=== PATIENT | female | born 1935 | race Caucasian/White ===

== ENCOUNTER 2021-01-13 09:55 | Inpatient (IN) | payer MEDICARE, OTHER, SELFPAY ==
[2021-01-13] VITALS (15 sets, daily range): BP systolic 102–193; BP diastolic 55–94; PULSE 63–85; RESP 14–23; TEMP 36.3–37.3; O2SAT 95–100; BMI 18.5; BMI 17.4
--- NOTE | 2021-01-13 | PATH_ITS ---
[facility] Accession Number: [id number] . 01 Material submitted: . appendix - APPENDIX . 02 Diagnosis: Appendix, Appendectomy: Acute appendicitis with serositis. Negative for dysplasia and malignancy. V 01/17/2021 1346 Local . 02 Electronically signed: . Elana Benson MD, Pathologist NPI- [id number] . 01 Gross description: . The specimen is received in formalin, labeled appendix and consists of a 5.6 cm in length by 1.4 cm in diameter vermiform appendix with minimal attached valencia-yellow lobulated mesoappendix. The serosa is valencia-pink to pink-purple and smooth with focal areas of hemorrhage and fibrinous adhesions. Sectioning reveals a valencia-pink mucosa and a lumen measuring 0.5 cm in diameter. Director Of Business Development sections are submitted to include the margin (blue), central cross-sections and serially sectioned tip in cassettes A1-A4. (EA:[id number]) /MRV 01/14/2021 1112 Local . 02 Pathologist provided ICD-10: K35.80 . 02 CPT . 897172 Performed at: 01 [facility] [address], [place], [place] [id number] MD Candido Arambula MD Phone: [phone] Performed at: 02 [facility] [address] [place], [place] [id number] MD Elana Benson MD Phone: [phone]
--- NOTE | 2021-01-13 10:06 | ED_ITS ---
HPI - Abdominal Pain General Chief Complaint: Abdominal Pain Stated Complaint: abdominal pain, suspects kidney stone Time Seen by Provider: 01/13/21 09:57 Source: patient and family Mode of arrival: Ambulatory Limitations: no limitations History of Present Illness HPI narrative: 85-year-old nonsmoker with history of hypertension presents with her in the chief complaint increasing lower abdominal pain over the past 24 hours or so. She has been nauseated but denies any vomiting. She has low- grade fever. She denies any change in appetite, bowel habits or urinary complaints such as dysuria, frequency or urgency. She last ate at about 8:00 a.m.. She takes no blood thinners. She states her pain is worse with movement and improves with rest. She denies any radiation of the pain and states she has never had anything like this before. It is moderate in intensity and relatively constant and slightly worsening over the course of the day MD complaint: abdominal pain Onset (ago): hour(s) Pain Consistency: constant Location: suprapubic Quality: cramping and aching Relieving factors: rest Exacerbating factors: movement Related Data Home Medications Medication Instructions Recorded Confirmed atorvastatin 10 mg PO DAILY 01/13/21 01/13/21 metformin 250 mg PO TID 01/13/21 01/13/21 valsartan 40 mg PO DAILY 01/13/21 01/13/21 Allergies Allergy/AdvReac Type Severity Reaction Status Date / Time Penicillins Allergy Intermediate Hives Verified 01/13/21 10:40 adhesive tape AdvReac Rash Verified 01/13/21 14:21 Review of Systems Constitutional Constitutional: Reports chills, Denies fatigue, Denies fever(s), Denies frequent falls, Denies lethargy and Denies weakness Eyes Eyes: Denies change in vision, Denies eye discharge, Denies irritation and Denies loss of vision ENT Ears, Nose, Mouth, and Throat: Denies change in voice, Denies dizziness, Denies neck pain, Denies sore throat and Denies throat swelling Cardiovascular Cardiovascular: Denies chest pain, Denies irregular heart rhythm, Denies lightheadedness, Denies palpitations, Denies dyspnea, Denies dyspnea on exertion and Denies orthopnea Respiratory Respiratory: Denies cough, Denies dyspnea, Denies dyspnea on exertion and Denies wheezing Gastrointestinal Gastrointestinal: Reports abdominal pain, Denies change in bowel habits, Denies diarrhea, Reports nausea and Denies vomiting Musculoskeletal Musculoskeletal: Denies neck pain and Denies numbness Integumentary/Breasts Skin/Breast: Denies pruritus, Denies erythema, Denies rash and Denies wounds Neurologic Neurologic: Denies behavioral changes, Denies confusion, Denies dizziness, Denies frequent falls, Denies loss of vision, Denies numbness and Denies weakness Psychiatric Psychiatric: Denies anxiety, Denies behavioral changes, Denies confusion, Denies depression, Denies homicidal ideation and Denies suicidal ideation Endocrine Endocrine: Denies fatigue, Denies flushing and Denies palpitations Hematologic/Lymphatic Hematologic/Lymphatic: Denies easy bruising Allergic/Immunologic Allergic/Immunologic: Denies urticaria, Denies throat swelling and Denies wheezing Patient History Surgical History (Updated 01/13/21 @ 14:20 by Ania Howe RN) History of mastectomy (~09/30/10) Social History household members: spouse Smoking Status: Never smoker alcohol intake: current Smoking Status: Never smoker alcohol intake frequency: 0-2 drinks per day Substance Use Type: does not use Exam Narrative Exam Narrative: GENERAL: [85] year old patient appears stated age. Well- nourished, well-developed patient, in mild distress. HEAD: Atraumatic. Normocephalic. EYES: Pupils equal round and reactive. Extraocular motions intact. No scleral icterus. No injection or drainage. ENT: Nose without bleeding, purulent drainage. Throat without erythema, tons illar hypertrophy or exudate. Airway patent. NECK: Trachea midline. Non tender CARDIOVASCULAR: Regular rate and rhythm without murmurs, gallops, or rubs. RESPIRATORY: Clear to auscultation. Breath sounds equal bilaterally. No wheezes, rales, or rhonchi. GASTROINTESTINAL: Abdomen soft, tender in the lower abdomen with localized peritonitis, nondistended. EXTREMITIES: No edema or joint tenderness. BACK: Nontender without deformity or crepitance. No flank tenderness. NEURO: AOx3. SKIN: No rash or erythema of visible areas Initial Vital Signs Initial Vital Signs: Vital Signs Temperature 99.1 F 01/13/21 09:55 Pulse Rate 85 01/13/21 09:55 Respiratory Rate 14 01/13/21 09:55 Blood Pressure 172/94 H 01/13/21 09:55 Pulse Oximetry 99 01/13/21 09:55 Course Orders Ordered: ED Orders 01/13/21 10:29 CT abdomen pelvis w con Stat 01/13/21 10:45 Complete Blood Count AUTO DIFF Stat Comprehensive Metabolic Panel Stat 01/13/21 12:30 COVID19 - ADMIT (SAFETY RISK LEAD swab/PCR) Stat Acetaminophen (Acetaminophen 325 Mg Tablet) 325 mg PO PACUNOW PRN PRN Reason: Pain, Mild (1-3) Acetaminophen (Acetaminophen 325 Mg Tablet) 650 mg PO Q6HR PRN PRN Reason: Pain, Mild (1-3) Atorvastatin Calcium (Atorvastatin 20 Mg Tablet) 10 mg PO DAILY RAUL Docusate Sodium (Docusate 100 Mg Capsule) 100 mg PO BID PRN PRN Reason: Constipation Fentanyl (Fentanyl 100 Mcg/2 Ml Inj) 0 mcg IV Q5M PRN PRN Reason: Pain, Moderate (4-6) Heparin Sodium (Porcine) (Heparin 5,000 Unit/Ml Vial) 5,000 unit SUBCUT BID [facility] Sodium Chloride (Normal Saline 0.9%) 1,000 mls @ 125 mls/hr IV CONT [facility] Last Infusion: 01/13/21 13:29 Dose: 0 mls/hr Documented by: Admin: 01/13/21 10:52 Dose: 125 mls/hr Documented by: BTONER Lactated Ringer's (Lactated Ringers) 1,000 mls @ 42 mls/hr IV CONT RAUL Last Infusion: 01/13/21 17:57 Dose: 0 mls/hr Documented by: Admin: 01/13/21 14:54 Dose: 42 mls/hr Documented by: NARAORD Levofloxacin (Levaquin) 750 mg in 150 mls @ 100 mls/hr IV Q48H [facility] Metformin HCl (Metformin Hcl 500 Mg Tablet) 250 mg PO TID [facility] Morphine Sulfate (Morphine 2 Mg/Ml Inj) 2 mg IV Q4HR PRN PRN Reason: Pain, Moderate (4-6) Naloxone HCl (Naloxone 0.4 Mg/Ml Vial) 0.2 mg IV Q2MIN PRN PRN Reason: Opiate Reversal Ondansetron HCl (Ondansetron 4 Mg/2 Ml Inj) 4 mg IV NOW PRN PRN Reason: Nausea And Vomiting Ondansetron HCl (Ondansetron 4 Mg/2 Ml Inj) 4 mg IV Q4HR PRN PRN Reason: Nausea And Vomiting Oxycodone HCl (Oxycodone Ir 5 Mg Tablet) 5 mg PO PACUNOW PRN PRN Reason: Mild or moderate pain Oxycodone HCl (Oxycodone Ir 5 Mg Tablet) 5 mg PO Q6HR PRN PRN Reason: Pain, Moderate (4-6) Valsartan (Valsartan 80 Mg Tablet) 40 mg PO DAILY RAUL Discontinued Medications Levofloxacin (Levaquin) 500 mg in 100 mls @ 100 mls/hr IV NOW ONE Stop: 01/13/21 13:05 Last Infusion: 01/13/21 13:37 Dose: 0 mls/hr Documented by: Admin: 01/13/21 12:17 Dose: 100 mls/hr Documented by: ANGEL Metronidazole (Flagyl) 500 mg in 100 mls @ 100 mls/hr IV NOW ONE Stop: 01/13/21 13:05 Last Admin: 01/13/21 13:37 Dose: Not Given Documented by: ANGEL Consultations Consultation #1: Upon receipt of CT scan and General surgery called, she will s ee the patient the bedside and taken the OR later today Vital Signs Vital signs: Vital Signs - 8 hr 01/13/21 12:05 Pulse Rate 70 Respiratory Rate 14 Blood Pressure 171/90 H Pulse Oximetry 100 MDM - Abdominal Pain Lab Data Result diagrams: 01/13/21 10:45 01/13/21 10:45 Labs: Lab Results 01/13/21 01/13/21 Range/Units 10:45 10:45 WBC 10.0 (4.5-11.0) X10^3/uL RBC 4.01 (4.0-5.2) X10^6/uL Hgb 13.2 (12.0-16.0) g/dL Hct 39.1 (36-46) % MCV 97.4 (80-100) fL MCH 32.8 (26-34) PG MCHC 33.7 (30-36) % RDW 13.7 (11.6-14.8) % Plt Count 211 (150-400) X10^3/uL Neut % (Auto) 73.3 (50-75) % Lymph % (Auto) 15.3 L (25-40) % [place] % (Auto) 10.3 (3-14) % Eos % (Auto) 0.4 L (2-4) % Baso % (Auto) 0.7 (0-2) % Neut # (Auto) 7300 H (3049-3905) /uL Lymph # (Auto) 1500 (0076-4476) /uL [place] # (Auto) 1000 H (0-900) /uL Eos # (Auto) 0 (0-450) /uL Baso # (Auto) 100 (0-100) /uL Sodium 132 L (137-145) mmol/L Potassium 4.1 (3.4-5.1) mmol/L Chloride 96 L (98-107) mmol/L Carbon Dioxide 27 (22-32) mmol/L BUN 14 (7-17) mg/dL Creatinine 0.86 (0.52-1.04) mg/dL Estimated GFR > 60.0 (>60) mL/min BUN/Creatinine Ratio 16.3 (6-22) Glucose 127 H (80-110) mg/dL Calcium 9.8 (8.4-10.2) mg/dL Total Bilirubin 1.8 H (0.2-1.3) mg/dL AST 26 (14-36) IU/L ALT 15 (<35) IU/L Alkaline Phosphatase 90 (38-126) U/L Total Protein 8.0 (6.3-8.2) g/dL Albumin 4.7 (3.5-5.0) g/dL Globulin 3.3 (1.7-4.1) g/dL Albumin/Globulin Ratio 1.4 (1.0-2.8) Point of care testing: Point of Care Testing Glucose POC 218 Urine Dip Bedside Urine Glucose Negative Bedside Urine Bilirubin - Negative Bedside Urine Ketone - Negative Urine Specific [place] 1.015 Bedside Urine Occult Blood - Negative Bedside Urine pH 7.0 Bedside Urine Protein - Negative Bedside Urine Urobilinogen - Negative Bedside Urine Nitrite - Negative Bedside Urine Leukocytes - Negative Esterase Imaging Data CT scan - abdomen/pelvis: Radiologist's Impression: Chart Viewer Diagnostics DATE TYPE STATUS REF RANGE/AUTHOR Hx Today 10:29 Paddy Mckeon Joan S 85, F0 1935 ADM [place], Main ED 152.4cm 40.5kg BMI: 17.4kg/m? Search Chart No Data to Display Hives Rash ONSET Today 18:44 Nusrat Faulkner 85 F [address] [address]PT Scan ReportSigned Patient: Nusrat FaulknerMR#: [id number]: 1935cct:[id number]/Sex: 85 / FDate of Service: 01/13/21Loc: EDAccession Number: [id number] Procedure: CT abdomen pelvis w con Ordering Provider: Edgard Vyas D.O. PROCEDURE: CT ABDOMEN PELVIS W CON INDICATIONS: severe pelvic / abdomen pain TECHNIQUE: After the administration of oral and intravenous contrast, 5 mm thick sections acquired from the diaphragms to the symphysis. 5 mm thick coronal and sagittal reformats were performed. For radiation dose reduction, the following was used: automated exposure control, adjustment of mA and/or kV according to patient size. COMPARISON: None. FINDINGS: Image quality: Excellent. ABDOMEN: Lung bases: Lung bases are clear. Heart size is normal. Solid organs: Liver is normal in size and enhancement. Gallbladder is grossly unremarkable. Biliary system is non-dilated. Pancreas enhances normally. Spleen is normal in size and enhancement. No adrenal nodules. Kidneys are normal in size and enhancement, without hydronephrosis. Peritoneum and bowel: Evaluation is limited secondary to lack of oral contrast. Stomach is decompressed. Proximal small bowel is decompressed. There are multiple mildly distended fluid-filled loops of small bowel throughout the pelvis and left hemiabdomen. These bowel loops demonstrate mild wall thickening. There is an abnormal appearing tubular structure within the right hemipelvis, which may represent a thickened appendix measuring roughly 10 mm diameter. At the posterior aspect of this structure, there is a ill-defined hypodense fluid collection measuring roughly 30 mm with an associated calcification measuring 10 mm. This could represent sequelae of ruptured appendicitis with appendicoliths. The colon is nondistended. There is severe thickening of the sigmoid colon. Nodes and vessels: No retroperitoneal or mesenteric adenopathy. Aorta and inferior vena cava are normal in caliber. Miscellaneous: No ventral hernias. PELVIS: Genitourinary: Bladder wall thickness is normal. Miscellaneous: No inguinal hernias or adenopathy. Bones: No suspicious bony lesions. Healed left inferior pubic ramus fracture. No vertebral body compression fractures. IMPRESSION: 1. Findings suggestive of ruptured appendicitis with associated secondary small and large bowel thickening as described above. There is an associated fluid collection at the appendiceal tip containing a presumed appendicoliths. Dictated by: Paddy Mckeon M.D. on 01/13/2021 at 11:53 Approved by: Paddy Mckeon M.D. on 01/13/2021 at 12:00 Discharge Plan Departure Patient Disposition: Admitted As Inpatient Clinical Impression: Acute appendicitis with perforation and generalized peritonitis Qualifiers: Appendicitis gangrene presence: without gangrene Appendicitis abscess presence: without abscess Qualified Code(s): K35.20 - Acute appendicitis with generalized peritonitis, without abscess Admit Date/Time: 01/13/21 12:08 Admit Provider: Myra Skelton
--- NOTE | 2021-01-13 10:29 | DI.CT.S_ITS ---
PROCEDURE: CT ABDOMEN PELVIS W CON INDICATIONS: severe pelvic / abdomen pain TECHNIQUE: After the administration of oral and intravenous contrast, 5 mm thick sections acquired from the diaphragms to the symphysis. 5 mm thick coronal and sagittal reformats were performed. For radiation dose reduction, the following was used: automated exposure control, adjustment of mA and/or kV according to patient size. COMPARISON: None. FINDINGS: Image quality: Excellent. ABDOMEN: Lung bases: Lung bases are clear. Heart size is normal. Solid organs: Liver is normal in size and enhancement. Gallbladder is grossly unremarkable. Biliary system is non-dilated. Pancreas enhances normally. Spleen is normal in size and enhancement. No adrenal nodules. Kidneys are normal in size and enhancement, without hydronephrosis. Peritoneum and bowel: Evaluation is limited secondary to lack of oral contrast. Stomach is decompressed. Proximal small bowel is decompressed. There are multiple mildly distended fluid-filled loops of small bowel throughout the pelvis and left hemiabdomen. These bowel loops demonstrate mild wall thickening. There is an abnormal appearing tubular structure within the right hemipelvis, which may represent a thickened appendix measuring roughly 10 mm diameter. At the posterior aspect of this structure, there is a ill-defined hypodense fluid collection measuring roughly 30 mm with an associated calcification measuring 10 mm. This could represent sequelae of ruptured appendicitis with appendicoliths. The colon is nondistended. There is severe thickening of the sigmoid colon. Nodes and vessels: No retroperitoneal or mesenteric adenopathy. Aorta and inferior vena cava are normal in caliber. Miscellaneous: No ventral hernias. PELVIS: Genitourinary: Bladder wall thickness is normal. Miscellaneous: No inguinal hernias or adenopathy. Bones: No suspicious bony lesions. Healed left inferior pubic ramus fracture. No vertebral body compression fractures. IMPRESSION: 1. Findings suggestive of ruptured appendicitis with associated secondary small and large bowel thickening as described above. There is an associated fluid collection at the appendiceal tip containing a presumed appendicoliths. Dictated by: Paddy Mckeon M.D. on 01/13/2021 at 11:53 Approved by: Paddy Mckeon M.D. on 01/13/2021 at 12:00
[2021-01-13 10:50] LABS: Add Manual Diff / Slide Review NO; Basophils Absolute Auto 100 /uL (0-100); Basophils Percent Auto 0.7 % (0-2); Eosinophils Absolute Auto 0 /uL (0-450); Eosinophils Percent Auto 0.4 % (2-4); Hematocrit 39.1 % (36-46); Hemoglobin 13.2 g/dL (12.0-16.0); Lymphocytes Absolute Auto 1500 /uL (1100-4500); Lymphocytes Percent Auto 15.3 % (25-40); Mean Corpuscular HGB Conc 33.7 % (30-36); Mean Corpuscular Hemoglobin 32.8 PG (26-34); Mean Corpuscular Volume 97.4 fL (80-100); Monocytes Absolute Auto 1000 /uL (0-900); Monocytes Percent Auto 10.3 % (3-14); Neutrophils Absolute Auto 7300 /uL (1500-7000); Neutrophils Percent Auto 73.3 % (50-75); Platelet Count 211 X10^3/uL (150-400); Red Blood Cell Count 4.01 X10^6/uL (4.0-5.2); Red Cell Distribution Width 13.7 % (11.6-14.8)
[2021-01-13] MEDS: SODIUM CHLORIDE 0.9% 1,000 ML 125 ML IV (10:52)
[2021-01-13 11:01] LABS: Alanine Aminotransferase 15 IU/L (<35); Albumin 4.7 g/dL (3.5-5.0); Albumin Globulin Ratio 1.4 (1.0-2.8); Alkaline Phosphatase 90 U/L (38-126); Aspartate Aminotransferase 26 IU/L (14-36); BUN Creatinine Ratio 16.3 (6-22); Bilirubin Total 1.8 mg/dL (0.2-1.3); Blood Urea Nitrogen 14 mg/dL (7-17); Calcium 9.8 mg/dL (8.4-10.2); Carbon Dioxide 27 mmol/L (22-32); Chloride 96 mmol/L (98-107); Estimated Glomerular Filt Rate > 60.0 mL/min (>60); Globulin 3.3 g/dL (1.7-4.1); Glucose 127 mg/dL (80-110); HEMOLYSIS < 15 (0-50); Potassium 4.1 mmol/L (3.4-5.1); Sodium 132 mmol/L (137-145)
[2021-01-13] MEDS: levoFLOXacin 500 MG/100 ML PIGGYBACK 100 MG IV (12:17)
--- NOTE | 2021-01-13 13:09 | PM.HP.1 ---
History of Present Illness History of Present Illness Date Patient Seen: 01/13/21 Time Patient Seen: 13:09 Chief complaint: abdominal pain, suspects kidney stone Narrative: This is a n 85 yo woman who presented to the ER today with suprapubic abdominal pain which she reports began yesterday. She had a CT scan which shows a probable perforated appendicitis with an appendicolith. She denies nausea/vomiting. She reports diarrhea. She reports she has never had abdominal surgery. She had a colonoscopy 8 years ago, which she reports was normal. She had polyps on a colonoscopy about 20 years ago. She had a Cologuard test 2 years ago, which she reports was normal. She has a family history of colon cancer in her mother. She denies any melena, hematochezia, unexplained abdominal pain, unexplained weight loss over the last few months or years. ROS: Thirteen system review is otherwise negative other than as mentioned below and in HPI. Past medical history: Type 2 diabetes Hyperlipidemia Hypertension History of left breast cancer treated with surgery only Past surgical history: Left mastectomy and reconstruction Diskectomy Social history Drinks alcohol Patient is visiting in [facility]. She lives in [facility]. She is appear to take her move to [place] with her . Allergies: Rash from penicillin many years ago Family history: Mother with colon cancer Medications Metformin 250 mg t.i.d. Valsartan 40 mg daily in the afternoon Atorvastatin 10 mg daily in the morning PE: GENERAL: Well groomed and cooperative. Appears stated age. Answers questions promptly and appropriately. Vital signs noted. HENT: Normocephalic, atraumatic. Hearing intact. EYES: Conjunctiva pink, sclera white, no periorbital swelling. CARDIOVASCULAR: Regular rate. No pedal edema. RESPIRATORY: Non-tachypneic, breathing comfortably on room air. GASTROINTESTINAL: Abdomen soft and non-distended; tender to palpation in the suprapubic region GENITALURINARY: No flank tenderness. MUSCULOSKELETAL: Equal tone and mass bilaterally. SKIN: Warm, dry, soft, appropriate color for ethnicity. No other lesions, rashes, or wounds. NEURO: Alert and Oriented X 3. No gross sensory deficits, or cognitive issues. PSYCH: Appropriate affect and mood. Patient History Family & Social History Safety & Behavioral: Feels Safe in Current Yes Environment Been Physically Hurt or No Threatened By a Person Tobacco & Substance use: Smoking Status Never smoker alcohol intake frequency 0-2 drinks per day Substance Use Type does not use Meds Home Medications and Allergies Home Medications Medication Instructions Recorded Confirmed Type valsartan 40 mg PO DAILY 01/13/21 01/13/21 History Allergies Allergy/AdvReac Type Severity Reaction Status Date / Time Penicillins Allergy Intermediate Hives Verified 01/13/21 10:40 Exam Vital Signs (past 8 hours): - 01/13/21 09:55 01/13/21 12:05 01/13/21 12:35 Temperature 99.1 F Pulse Rate 85 70 72 Respiratory Rate 14 14 16 Blood Pressure 172/94 H 171/90 H 184/85 H Pulse Oximetry 99 100 100 Oxygen Delivery Method Room Air Objective Imaging CT scan - abdomen: Radiologist's impression: [address] [address] [address] Scan Report Signed Patient: Nusrat Faulkner MR#: [id number] : 1935 Acct:[id number] Age/Sex: 85 / F Date of Service: 01/13/21 Loc: ED Accession Number: [id number] Procedure: CT abdomen pelvis w con Ordering Provider: Edgard Vyas D.O. PROCEDURE: CT ABDOMEN PELVIS W CON INDICATIONS: severe pelvic / abdomen pain TECHNIQUE: After the administration of oral and intravenous contrast, 5 mm thick sections acquired from the diaphragms to the symphysis. 5 mm thick coronal and sagittal reformats were performed. For radiation dose reduction, the following was used: automated exposure control, adjustment of mA and/or kV according to patient size. COMPARISON: None. FINDINGS: Image quality: Excellent. ABDOMEN: Lung bases: Lung bases are clear. Heart size is normal. Solid organs: Liver is normal in size and enhancement. Gallbladder is grossly unremarkable. Biliary system is non-dilated. Pancreas enhances normally. Spleen is normal in size and enhancement. No adrenal nodules. Kidneys are normal in size and enhancement, without hydronephrosis. Peritoneum and bowel: Evaluation is limited secondary to lack of oral contrast. Stomach is decompressed. Proximal small bowel is decompressed. There are multiple mildly distended fluid-filled loops of small bowel throughout the pelvis and left hemiabdomen. These bowel loops demonstrate mild wall thickening. There is an abnormal appearing tubular structure within the right hemipelvis, which may represent a thickened appendix measuring roughly 10 mm diameter. At the posterior aspect of this structure, there is a ill-defined hypodense fluid collection measuring roughly 30 mm with an associated calcification measuring 10 mm. This could represent sequelae of ruptured appendicitis with appendicoliths. The colon is nondistended. There is severe thickening of the sigmoid colon. Nodes and vessels: No retroperitoneal or mesenteric adenopathy. Aorta and inferior vena cava are normal in caliber. Miscellaneous: No ventral hernias. PELVIS: Genitourinary: Bladder wall thickness is normal. Miscellaneous: No inguinal hernias or adenopathy. Bones: No suspicious bony lesions. Healed left inferior pubic ramus fracture. No vertebral body compression fractures. IMPRESSION: 1. Findings suggestive of ruptured appendicitis with associated secondary small and large bowel thickening as described above. There is an associated fluid collection at the appendiceal tip containing a presumed appendicoliths. Dictated by: Paddy Mckeon M.D. on 01/13/2021 at 11:53 Approved by: Paddy Mckeon M.D. on 01/13/2021 at 12:00 Labs Result Diagrams: 01/13/21 10:45 01/13/21 10:45 Labs: Laboratory Results - last 24 hr 01/13/21 01/13/21 10:45 10:45 WBC 10.0 RBC 4.01 Hgb 13.2 Hct 39.1 MCV 97.4 MCH 32.8 MCHC 33.7 RDW 13.7 Plt Count 211 Neut % (Auto) 73.3 Lymph % (Auto) 15.3 L [place] % (Auto) 10.3 Eos % (Auto) 0.4 L Baso % (Auto) 0.7 Neut # (Auto) 7300 H Lymph # (Auto) 1500 [place] # (Auto) 1000 H Eos # (Auto) 0 Baso # (Auto) 100 Sodium 132 L Potassium 4.1 Chloride 96 L Carbon Dioxide 27 BUN 14 Creatinine 0.86 Estimated GFR > 60.0 BUN/Creatinine Ratio 16.3 Glucose 127 H Calcium 9.8 Total Bilirubin 1.8 H AST 26 ALT 15 Alkaline Phosphatase 90 Total Protein 8.0 Albumin 4.7 Globulin 3.3 Albumin/Globulin Ratio 1.4 Assessment & Plan Assessment and plan (1) DM2 (diabetes mellitus, type 2): Status: Acute (2) Hypertension: Status: Acute (3) Hyperlipidemia: Status: Acute (4) History of breast cancer: Status: Acute (5) Family history of colon cancer: Status: Acute (6) Acute appendicitis with appendiceal abscess: Status: Acute Assessment & Plan narrative: This is an 85-year-old woman with what looks like acute appendicitis on CT scan, and make sense in terms of her history of 1 day of abdominal pain in the same area that looks like her appendix is perforated in the pelvis. Explained to her that this is a black and white image, and with all of the information that we have, sometimes we find something different when we go in to do the operation. I explained to her that in someone of her age, and of her family history of colon cancer, I do after let her know that it is possible we may find that her appendicitis is secondary to a colon cancer, and she may end up needing a more extensive operation specifically a right hemicolectomy. The risks and benefits of laparoscopic possible open appendectomy and possible right hemicolectomy were discussed with the patient her including risk of bleeding, infection, damage to nearby structures, need for additional procedures, need for prolonged hospitalization, postop complications such as abscess, bowel obstruction. The patient desires to proceed with laparoscopic possible open appendectomy. Plan: NPO, IV fluids, IV antibiotics Proceed to the OR for laparoscopic possible open appendectomy COVID-19 COVID-19 status: Negative Result date/Date tested (Pos, Neg/Pending): 01/13/21 Time Spent With Patient Time with patient: 25 - 35 minutes Quality VTE Deep Vein Thrombosis/Pulmonary Embolism Present on Admission: No
[2021-01-13 13:43] LABS: COVID19 - ADMIT (NP swab/PCR) Negative (Negative)
--- NOTE | 2021-01-13 14:13 | PC.NURSE ---
Pt to room 226 from ED at 1340 via w/c. Pt able to transfer independently from w/c to bed. AO x4 and making her needs known with clear, logical speech. Admission assessment complete. Pt left to OR via bed at 1410.
[2021-01-13] MEDS: LACTATED RINGERS 1,000 ML 42 ML IV ×2 (14:54→19:00)
--- NOTE | 2021-01-13 16:23 | SUR.OPER ---
Supine on padded OR bed, head on pillow, arms secured on padded arm boards at <90 degrees abduction, legs uncrossed, safety belt at thigh, tape over blanket over lower legs. Pillow under knees.
--- NOTE | 2021-01-13 17:42 | PM.OP.1 ---
Operative Date/Time/Diagnoses Date of procedure: 01/13/21 Time of procedure: 17:42 Pre-op diagnosis: acute appendicitis, suspect perforation Post-op diagnosis: same (Acute appendicitis, perforated) Procedure & Clinicians Procedure: Laparoscopic appendectomy Same procedure as scheduled: Yes Indications: Acute perforated appendicitis Surgeon: Myra Skelton Click Yes if Unassisted: Yes Anesthesia Type: General Operative Notes Findings: Thickened mid and distal appendix; perforation with stool and purulent fluid in the pelvis Specimen(s): other (appendix) Estimated Blood Loss (mL): 5 Blood products transfused: none Procedure in detail: The patient was brought into the operating room and placed supine on the OR table. Sequential compression devices were placed on both legs and turned on. Appropriate antibiotic was given prior to the start of surgery. General anesthesia was induced the patient was intubated. Bedoya catheter was placed sterilely in the bladder. The abdomen was prepped and draped in sterile fashion. Surgical time-out was conducted. Local anesthetic was injected under the skin just superior to the umbilicus and a 5 mm vertical incision was made at this site. The umbilical stalk was grasped with a Savanna and elevated. A Veress needle was passed through the fascia into proper position. The position was tested with a saline drop test which was appropriate for intra-abdominal Veress needle placement. The abdomen was then insufflated in the usual fashion. Once insufflated to 15 mm Hg the Veress needle was removed and a 5 mm optical trocar was placed under direct vision using a 5 mm 30 degree scope. Once the camera was inside the abdomen I took a look around. There was no injury from port placement. Two additional ports were placed in a similar fashion in the suprapubic position and left lower quadrant. The umbilical port was upsized to a 12 mm port. I took a look at the cecum and right lower quadrant, and the appendix was seen deep in the pelvis. It was thickened, firm, and adherent to the uterus, right pelvic wall, and surrounding soft tissue structures. There was a small pool of purulent fluid in the right gutter associated with the appendix. The suction device was used to suction away all of the purulent fluid that was visible. I then grasped the end of the narrow base of the appendix and elevated it. I carefully dissected the appendix away from the right pelvic side wall and off of the uterus with Ligasure. There was a perforation of the mid appendix and a fecolith within the perforation. It was removed from the abdomen with stone forceps. Once the mid and distal appendix was free, I dissected my way down the appendix to its junction with the cecum. At its base, the appendix was soft and pliable. 2 Endoloops were placed at the base of the appendix, and the appendix was divided with LigaSure leaving the endo-loops in place on the cecum. The appendix was then placed into an Endo-Catch bag, and removed through the umbilical port site. It was passed off the table for pathology. I then took another look at the right lower quadrant, irrigated to check for any ongoing bleeding. There was no evidence of ongoing bleeding. The endo-loops were in good position, and the cecum was hemostatic. A 19 round Roberth drain was placed through the left lateral port site and positioned in the pelvis. It was secured to the skin with 3-0 nylon. I then used the laparoscopic suture passer and closed the umbilical port site with 0 Vicryl suture through the fascia. Local anesthetic was used in this site and the other 2 port sites for a total of 30 mL of 0.25% Marcaine with epi for the entire case. At this point the insufflation was removed from the abdomen and the port sites were closed with, 3-0 Vicryl in the subcutaneous layers, and 4 Monocryl in the skin. Each port site was sealed with Steri Strips. Local anesthetic was given at each of the port sites and in the fascia. This concluded the procedure. At this point the needle sponge and instrument counts were correct. The patient was awakened from anesthesia and extubated. Bedoya catheter was removed without incident. The patient was transferred to the postanesthesia care unit in stable condition. Complications: none Post-operative Condition: stable Disposition: PACU
--- NOTE | 2021-01-13 18:06 | SUR.PHASEI ---
Report to Dani RN on the floor.
--- NOTE | 2021-01-13 18:07 | SUR.PHASEI ---
Pt denies any pain at this time. VSS. AOx4.
--- NOTE | 2021-01-13 18:20 | SUR.PHASEI ---
Blood sugar recheck 190
--- NOTE | 2021-01-13 18:41 | SUR.PREOP ---
Transfer of care completed with Dani LASSITER
[2021-01-13] MEDS: metroNIDAZOLE 500 MG/100 ML PIGGYBACK 100 MG IV (20:03)
[2021-01-13] MEDS: METFORMIN HCL 500 MG TABLET 250 MG PO (20:37)
--- NOTE | 2021-01-13 21:22 | PC.NURSE ---
1930 Pt returned from PACU per bed to rm 226 post-op lap appy. Abd dressing to lower abdomen dry and intact, lap site dressing dry and intact. Awake and alert, denies pain. IV of LR @ 42ml/hr started per order. Pt taking sips of water without complaint of nausea. @ 2100, pt ambulated to BR but was unable to void. Bladder scan done, results =0.
--- NOTE | 2021-01-14 00:34 | PC.NURSE ---
Addendum entered by Randi George R.N. 01/14/21 05:19: 0500-Patient tried to void. Patient states she has a burning sensation but is not able to initiate flow. Volume in bladder is 348. Will give a little more time to see if patient is successful on her own. Original Note: 0000- Patient has medication due at 0130. Plan to allow patient to sleep until medication administration. Will monitor.
[2021-01-14] MEDS: metroNIDAZOLE 500 MG/100 ML PIGGYBACK 100 MG IV ×4 (01:43→19:18)
[2021-01-14 05:13] VITALS: BP 118/64; PULSE 63; RESP 20; TEMP 37.9; O2SAT 97
[2021-01-14 05:27] LABS: Add Manual Diff / Slide Review NO; Basophils Absolute Auto 0 /uL (0-100); Basophils Percent Auto 0.2 % (0-2); Eosinophils Absolute Auto 0 /uL (0-450); Eosinophils Percent Auto 0.1 % (2-4); Hematocrit 32.7 % (36-46); Hemoglobin 11.3 g/dL (12.0-16.0); Lymphocytes Absolute Auto 1100 /uL (1100-4500); Lymphocytes Percent Auto 14.2 % (25-40); Mean Corpuscular HGB Conc 34.4 % (30-36); Mean Corpuscular Hemoglobin 33.5 PG (26-34); Mean Corpuscular Volume 97.1 fL (80-100); Monocytes Absolute Auto 800 /uL (0-900); Monocytes Percent Auto 10.2 % (3-14); Neutrophils Absolute Auto 5900 /uL (1500-7000); Neutrophils Percent Auto 75.3 % (50-75); Platelet Count 162 X10^3/uL (150-400); Red Blood Cell Count 3.37 X10^6/uL (4.0-5.2); Red Cell Distribution Width 13.3 % (11.6-14.8); White Blood Cell Count 7.9 X10^3/uL (4.5-11.0)
[2021-01-14 05:33] LABS: Blood Urea Nitrogen 10 mg/dL (7-17); Calcium 8.7 mg/dL (8.4-10.2); Carbon Dioxide 22 mmol/L (22-32); Chloride 99 mmol/L (98-107); Estimated Glomerular Filt Rate > 60.0 mL/min (>60); Glucose 131 mg/dL (80-110); HEMOLYSIS < 15 (0-50); Magnesium 2.1 mg/dL (1.6-2.3); Potassium 4.3 mmol/L (3.4-5.1); Sodium 128 mmol/L (137-145)
[2021-01-14] MEDS: DOCUSATE 100 MG CAPSULE PO ×2 (07:46→21:01)
[2021-01-14] MEDS: METFORMIN HCL 500 MG TABLET 250 MG PO ×3 (07:46→21:00)
[2021-01-14] MEDS: ATORVASTATIN 20 MG TABLET 10 MG PO (08:07)
[2021-01-14] MEDS: HEPARIN 5,000 UNIT/ML VIAL 3000 UNIT SUBCUT ×2 (08:11→21:01)
[2021-01-14 08:42] VITALS: BP 122/71; PULSE 64; RESP 17; TEMP 37; O2SAT 97
--- NOTE | 2021-01-14 09:05 | P.PN_ITS ---
Subjective Subjective Date Patient Seen: 01/14/21 Time Patient Seen: 09:05 Interval history: No acute events overnight. Pt was able to void this AM. Denies flatus or BM since surgery. Denies pain. Denies nausea. Ate breakfast this morning. Says she feels pretty well. Exam Vital Signs (past 8 hours): - 01/14/21 05:13 01/14/21 08:42 Temperature 100.3 F H 98.6 F Pulse Rate 63 64 Respiratory Rate 20 17 Blood Pressure 118/64 122/71 Pulse Oximetry 97 97 Oxygen Delivery Method Room Air Oxygen Flow Rate 0 Narrative Exam Narrative: ANISH drain serosanguineous Surgical dressings clean dry and intact Abdomen soft and nondistended Patient appears well and nontoxic Non tachypneic, breathing comfortably on room air Normotensive, not tachycardic Objective Labs Result Diagrams: 01/14/21 04:53 01/14/21 04:53 Labs: Laboratory Results - last 24 hr 01/13/21 01/13/21 01/13/21 10:45 10:45 12:30 WBC 10.0 RBC 4.01 Hgb 13.2 Hct 39.1 MCV 97.4 MCH 32.8 MCHC 33.7 RDW 13.7 Plt Count 211 Neut % (Auto) 73.3 Lymph % (Auto) 15.3 L [place] % (Auto) 10.3 Eos % (Auto) 0.4 L Baso % (Auto) 0.7 Neut # (Auto) 7300 H Lymph # (Auto) 1500 [place] # (Auto) 1000 H Eos # (Auto) 0 Baso # (Auto) 100 Sodium 132 L Potassium 4.1 Chloride 96 L Carbon Dioxide 27 BUN 14 Creatinine 0.86 Estimated GFR > 60.0 BUN/Creatinine Ratio 16.3 Glucose 127 H Calcium 9.8 Magnesium Total Bilirubin 1.8 H AST 26 ALT 15 Alkaline Phosphatase 90 Total Protein 8.0 Albumin 4.7 Globulin 3.3 Albumin/Globulin Ratio 1.4 Nasal Screen MRSA (PCR) SARS-CoV-2 (PCR) Negative 01/13/21 01/14/21 01/14/21 14:51 04:53 04:53 WBC 7.9 RBC 3.37 L Hgb 11.3 L Hct 32.7 L MCV 97.1 MCH 33.5 MCHC 34.4 RDW 13.3 Plt Count 162 Neut % (Auto) 75.3 H Lymph % (Auto) 14.2 L [place] % (Auto) 10.2 Eos % (Auto) 0.1 L Baso % (Auto) 0.2 Neut # (Auto) 5900 Lymph # (Auto) 1100 [place] # (Auto) 800 Eos # (Auto) 0 Baso # (Auto) 0 Sodium 128 L Potassium 4.3 Chloride 99 Carbon Dioxide 22 BUN 10 Creatinine 0.77 Estimated GFR > 60.0 BUN/Creatinine Ratio 13.0 Glucose 131 H Calcium 8.7 Magnesium 2.1 Total Bilirubin AST ALT Alkaline Phosphatase Total Protein Albumin Globulin Albumin/Globulin Ratio Nasal Screen MRSA (PCR) Negative for mrsa SARS-CoV-2 (PCR) [facility] Surgical History History of mastectomy (~09/30/10) Social History household members: spouse Smoking Status: Never smoker alcohol intake: current Assessment & Plan Assessment and plan (1) Pre-diabetes: Status: Acute (2) Hypertension: Qualifiers: Hypertension type: unspecified Qualified Code(s): I10 - Essential (primary) hypertension Status: Acute (3) Hyperlipidemia: Qualifiers: Hyperlipidemia type: unspecified Qualified Code(s): E78.5 - Hyperlipidemia, unspecified Status: Acute (4) Acute appendicitis with appendiceal abscess: Status: Acute (5) Acute appendicitis with perforation and generalized peritonitis: Qualifiers: Appendicitis abscess presence: without abscess Appendicitis gangrene presence: without gangrene Qualified Code(s): K35.20 - Acute appendicitis with generalized peritonitis, without abscess Status: Acute Assessment & Plan narrative: This is an 85-year-old woman who is postop day 1 from laparoscopic appendectomy for ruptured appendix which was adherent to the uterus. The patient is doing quite well, given all of that. She had a low- grade fever this morning of 100.3, and still has a left shift on her CBC. She had quite a bit of soilage in her abdomen due to the perforation of her appendix. I would like to continue her antibiotics for another day, and follow her drain output. If the drain remains clear, nonbloody, non bilious, and her labs are encouraging, we will remove the drain tomorrow and plan on discharging her tomorrow. I have cautioned her to stay in town for 2 weeks, rather than going immediately on her boat trip to [place] as the 2 week postop time period is the time when postop complications such as abscess or obstruction would be most likely to arise. The patient and her were agreeable to this plan, and will plan to see me back a week from in the office to determine whether not it is appropriate for her to go ahead on her trip. Plan: General diet as tolerated Ambulate frequently ANISH drain management Encourage p.o. fluid Continue IV antibiotic until afebrile for 24 hours and left shift is normalized DVT prophylaxis Incentive spirometer COVID-19 COVID-19 status: Negative Result date/Date tested (Pos, Neg/Pending): 01/13/21 Time Spent With Patient Time with patient: 15-24 minutes Quality VTE Deep Vein Thrombosis/Pulmonary Embolism Present on Admission: No
[2021-01-14] MEDS: VALSARTAN 80 MG TABLET 40 MG PO (09:27)
[2021-01-14] MEDS: SODIUM CHLORIDE 0.9% FLUSH 10 ML IV (09:29)
--- NOTE | 2021-01-14 11:25 | CM.DANOTE ---
DCP: Case received, EMR reviewed and met with patient. , Bobby, was also at bedside. Introduced self and role. Was able to obtain information from patient regarding her baseline activity status prior to hospitalization, as well as her current living situation. DCP assessment completed with information currently available. Patient is an 85 year old female who admitted yesterday afternoon to the care of the hospitalist/surgical team. PCP: Dr. Eugene Dalton (in [place]). Payer: confirmed: Medicare Patient came to the hospital via private vehicle secondary to having increased abdominal pain. Patient was diagnosed with acute appendicitis, perforated. She had a laparoscopic appendectomy yesterday. Met with patient and in her room. She is alert and oriented. Confirmed that she and her reside in [place], [place]. They were on their way to [place] via boat, which they are traveling on. indicated that they are exploring several regions in [place]. Patient is independent and active at her baseline. Her hobby includes horseback riding a couple of days a week. Her provider is in [place]. P: DCP to continue to follow. indicated that they will be staying on their boat in this area, due to advise from surgeon, since she will be needing to follow up in the office. After she is cleared and has followed up at surgery office after discharge, they will resume back to [place] on their boat. Yasmin Shelton RN/Preassembler And Inspector
[2021-01-14 12:00] VITALS: BP 130/68; PULSE 64; RESP 17; TEMP 37.2; O2SAT 100
[2021-01-14] MEDS: LACTATED RINGERS 1,000 ML 42 ML IV (15:20)
[2021-01-14 16:00] VITALS: BP 133/69; PULSE 71; RESP 16; TEMP 36.6; O2SAT 97
[2021-01-14 20:11] VITALS: BP 163/77; PULSE 68; RESP 16; TEMP 37.1; O2SAT 98
[2021-01-14 23:45] VITALS: BP 131/68; PULSE 65; RESP 15; TEMP 37.2; O2SAT 97
[2021-01-15] VITALS (7 sets, daily range): BP systolic 111–171; BP diastolic 61–89; PULSE 67–80; RESP 14–18; TEMP 36.6–37.1; O2SAT 96–99
--- NOTE | 2021-01-15 | DI.RAD.S_ITS ---
PROCEDURE: XR GASTROGRAFIN CHALLENGE COMPARISON: [facility], CR, XR KUB, 01/15/2021, 9:38. INDICATIONS: ileus/obstruction post appy FINDINGS: Diffuse mildly dilated large and small bowel loops. Catheter is unchanged. There is oral contrast material within the stomach small bowel and colon at the 3 hour 45 minutes derrick. No definite contrast material seen in the rectal vault. IMPRESSION: Contrast within the stomach, small bowel and colon. No contrast seen in the rectal vault Dictated by: Donato Isabel M.D. on 01/15/2021 at 16:35 Approved by: Donato Isabel M.D. on 01/15/2021 at 16:38
[2021-01-15] MEDS: metroNIDAZOLE 500 MG/100 ML PIGGYBACK 100 MG IV ×2 (01:29→08:49)
[2021-01-15] MEDS: LACTATED RINGERS 1,000 ML 42 ML IV (04:59)
[2021-01-15 05:28] LABS: Add Manual Diff / Slide Review NO; Basophils Absolute Auto 0 /uL (0-100); Basophils Percent Auto 0.5 % (0-2); Eosinophils Absolute Auto 100 /uL (0-450); Hematocrit 34.4 % (36-46); Hemoglobin 11.5 g/dL (12.0-16.0); Lymphocytes Absolute Auto 1500 /uL (1100-4500); Lymphocytes Percent Auto 20.8 % (25-40); Mean Corpuscular HGB Conc 33.6 % (30-36); Mean Corpuscular Hemoglobin 32.9 PG (26-34); Mean Corpuscular Volume 97.9 fL (80-100); Monocytes Absolute Auto 900 /uL (0-900); Monocytes Percent Auto 12.1 % (3-14); Neutrophils Absolute Auto 4700 /uL (1500-7000); Neutrophils Percent Auto 65.6 % (50-75); Platelet Count 176 X10^3/uL (150-400); Red Blood Cell Count 3.51 X10^6/uL (4.0-5.2); Red Cell Distribution Width 13.1 % (11.6-14.8); White Blood Cell Count 7.2 X10^3/uL (4.5-11.0)
[2021-01-15 05:32] LABS: BUN Creatinine Ratio 14.8 (6-22); Blood Urea Nitrogen 12 mg/dL (7-17); Calcium 8.6 mg/dL (8.4-10.2); Carbon Dioxide 23 mmol/L (22-32); Chloride 102 mmol/L (98-107); Estimated Glomerular Filt Rate > 60.0 mL/min (>60); Glucose 111 mg/dL (80-110); HEMOLYSIS < 15 (0-50); Magnesium 1.9 mg/dL (1.6-2.3); Potassium 4.1 mmol/L (3.4-5.1); Sodium 129 mmol/L (137-145)
[2021-01-15 07:12] LABS: Creatinine Body Fluid 0.87 mg/dL
[2021-01-15] MEDS: ATORVASTATIN 20 MG TABLET 10 MG PO (08:49)
[2021-01-15] MEDS: DOCUSATE 100 MG CAPSULE PO (08:49)
[2021-01-15] MEDS: HEPARIN 5,000 UNIT/ML VIAL 3000 UNIT SUBCUT ×2 (08:50→20:53)
[2021-01-15] MEDS: METFORMIN HCL 500 MG TABLET 250 MG PO ×2 (08:50→20:53)
--- NOTE | 2021-01-15 09:20 | DI.RAD.S_ITS ---
PROCEDURE: XR KUB INDICATIONS: distension, obstipation TECHNIQUE: One view of the abdomen acquired. COMPARISON: None. FINDINGS: Surgical changes and devices: Left-sided percutaneous dialysis catheter noted. Bowel: There is moderate fecal debris in the sigmoid colon with gaseous distension of the remainder of the colon without evidence of chey obstruction. Small bowel unremarkable. Soft tissues: No suspicious abdominal calcifications. Visualized solid organ contours appear normal in size. Bones: No suspicious bony lesions. Degenerative changes noted lower lumbar spine. There is partial lumbarization of the S1 vertebral body. IMPRESSION: Moderate fecal debris in the sigmoid colon with gaseous distention of the proximal colon. No chey obstruction. Peritoneal dialysis catheter in place Degenerative lower lumbar spine Dictated by: Preet Ott M.D. on 01/15/2021 at 10:11 Approved by: Preet Ott M.D. on 01/15/2021 at 10:19
--- NOTE | 2021-01-15 09:21 | P.PN_ITS ---
Subjective Subjective Date Patient Seen: 01/15/21 Time Patient Seen: 09:21 Interval history: No acute events overnight. Patient still not passing gas or stool. Denies nausea. Reports some burping. Feels more distended. Exam Vital Signs (past 8 hours): - 01/15/21 05:07 01/15/21 08:00 Temperature 97.8 F 98.2 F Pulse Rate 67 73 Respiratory Rate 14 17 Blood Pressure 133/73 139/71 Pulse Oximetry 97 98 Oxygen Delivery Method Room Air Oxygen Flow Rate 0 Narrative Exam Narrative: Alert, comfortable, standing in room and washing at the sink None tachypneic, breathing comfortably on room air Regular rate, no lower extremity edema Abdomen soft, distended, ANISH drain with serous output Dressings clean and intact Objective Labs Result Diagrams: 01/15/21 04:56 01/15/21 04:56 Labs: Laboratory Results - last 24 hr 01/15/21 01/15/21 01/15/21 04:56 04:56 06:41 WBC 7.2 RBC 3.51 L Hgb 11.5 L Hct 34.4 L MCV 97.9 MCH 32.9 MCHC 33.6 RDW 13.1 Plt Count 176 Neut % (Auto) 65.6 Lymph % (Auto) 20.8 L [place] % (Auto) 12.1 Eos % (Auto) 1.0 L Baso % (Auto) 0.5 Neut # (Auto) 4700 Lymph # (Auto) 1500 [place] # (Auto) 900 Eos # (Auto) 100 Baso # (Auto) 0 Sodium 129 L Potassium 4.1 Chloride 102 Carbon Dioxide 23 BUN 12 Creatinine 0.81 Estimated GFR > 60.0 BUN/Creatinine Ratio 14.8 Glucose 111 H Calcium 8.6 Magnesium 1.9 Fluid Creatinine 0.87 [facility] Surgical History History of mastectomy (~09/30/10) Social History household members: spouse Smoking Status: Never smoker alcohol intake: current Assessment & Plan Assessment and plan (1) Pre-diabetes: Status: Acute (2) Hypertension: Qualifiers: Hypertension type: unspecified Qualified Code(s): I10 - Essential (primary) hypertension Status: Acute (3) Hyperlipidemia: Qualifiers: Hyperlipidemia type: unspecified Qualified Code(s): E78.5 - Hyperlipidemia, unspecified Status: Acute (4) Acute appendicitis with appendiceal abscess: Status: Acute (5) Acute appendicitis with perforation and generalized peritonitis: Qualifiers: Appendicitis abscess presence: without abscess Appendicitis gangrene presence: without gangrene Qualified Code(s): K35.20 - Acute appendicitis with generalized peritonitis, without abscess Status: Acute Assessment & Plan narrative: This is an 85-year-old woman who is postop day 2 from laparoscopic appendectomy for ruptured appendix which was adherent to the uterus. Overall she is doing well, but she has not passed gas or stool since her surgery, and she is quite distended this morning. Her drain output remains high. I sent it for creatinine this morning and it was consistent with serum, so not a urine leak. At this point I am concerned that she either has ileus, constipation, or small- bowel obstruction due to acute inflammation of the right lower quadrant causing adhesions. I have encouraged her to ambulate as much as possible, we will give her MiraLax and a suppository, and get an x-ray to see how dilated her bowels are. If she is able to pass gas and stool we will still consider discharge later today. Her drain output is too high to remove it, and so she is receiving drain teaching from the nurses and will plan on managing at home. She has a follow-up appointment next Wednesday to see me in the office. I have cautioned her to stay in town for 2 weeks, rather than going immediately on her boat trip to [place] as the 2 week postop time period is the time when postop complications such as abscess or obstruction would be most likely to arise. The patient and her were agreeable to this plan, and will plan to see me back a week from in the office to determine whether not it is appropriate for her to go ahead on her trip. Plan: General diet as tolerated Ambulate frequently ANISH drain management Encourage p.o. fluid DVT prophylaxis Incentive spirometer KUB Suppository MiraLax t.i.d. until return of bowel function COVID-19 COVID-19 status: Negative Result date/Date tested (Pos, Neg/Pending): 01/13/21 Time Spent With Patient Time with patient: 15-24 minutes Quality VTE Deep Vein Thrombosis/Pulmonary Embolism Present on Admission: No
--- NOTE | 2021-01-15 09:22 | PC.NURSE ---
Addendum entered by Stephanie Cosme R.N. 01/15/21 14:44: Pt with 450mls liquid emesis. Update to Dr Skelton, IVF restarted, Pt with continued c/o gas pains, continue to enc ambulation.Pt continues to be reluctant. Ambulating in room to BR. But only one lap completed outside of room. No bm, after suppository. Addendum entered by Stephanie Cosme R.N. 01/15/21 12:32: With continued c/o nausea and flatus + but no stooling, Pt continues to decline antiemetic. Addendum entered by Stephanie Cosme R.N. 01/15/21 12:01: Pt doing small bowel follow through. Denies nausea at present, but c/o contrast material and staff constant cues for mobilization. I am tired Education provided about illeus and POC update Original Note: AM shift Pt up ambulating in room a bit, denies pain. Tolerating breakfast without nausea. Roberth drainis compressed and draining yellowed fluid. Pt not passing much flatus. Enc ambulation, denies pain. Nafisa into see Pt and orders obtained.
[2021-01-15] MEDS: VALSARTAN 80 MG TABLET 40 MG PO (09:53)
[2021-01-15] MEDS: MAGNESIUM SULFATE 1 GM in DEXTROSE 5 % IN WATER 100 ML 102 ML IV (09:53)
[2021-01-15] MEDS: polyethylene glycoL 3350 17 GM POWD.PACK PO (09:54)
--- NOTE | 2021-01-15 11:28 | CM.DPC ---
DCP Cont: Per Surgeon, pt continues to have significant distension in her abdomen with low bowel tones/mvmt and will increase her bowel regimen, order an xray, and increase her ambulation and not stable for d/c yet today. Per RN, helped to provide additional gown for pt to feel comfortable ambulating hallways and was able to ambulate the unit with spouse independently. Plan: SW to follow for likely pt d/c home to boat with spouse when medically stable, possibly tomorrow pending xray and bm, and any further identified needs. Luda Claudio MSW
[2021-01-15] MEDS: BISACODYL 10 MG SUPP PR (12:00)
[2021-01-15] MEDS: ONDANSETRON 4 MG/2 ML INJ IV (13:41)
[2021-01-15] MEDS: SODIUM CHLORIDE 0.9% 1,000 ML 84 ML IV (14:43)
[2021-01-16] MEDS: SODIUM CHLORIDE 0.9% 1,000 ML 84 ML IV (02:08)
[2021-01-16 03:00] VITALS: BP 113/65; PULSE 65; RESP 16; TEMP 36.5; O2SAT 97
[2021-01-16 05:25] LABS: Add Manual Diff / Slide Review NO; Basophils Absolute Auto 0 /uL (0-100); Basophils Percent Auto 0.6 % (0-2); Eosinophils Absolute Auto 100 /uL (0-450); Hematocrit 31.4 % (36-46); Hemoglobin 10.5 g/dL (12.0-16.0); Lymphocytes Absolute Auto 1500 /uL (1100-4500); Lymphocytes Percent Auto 24.7 % (25-40); Mean Corpuscular HGB Conc 33.3 % (30-36); Mean Corpuscular Hemoglobin 32.9 PG (26-34); Mean Corpuscular Volume 98.6 fL (80-100); Monocytes Absolute Auto 800 /uL (0-900); Monocytes Percent Auto 13.5 % (3-14); Neutrophils Absolute Auto 3600 /uL (1500-7000); Neutrophils Percent Auto 59.2 % (50-75); Platelet Count 204 X10^3/uL (150-400); Red Blood Cell Count 3.19 X10^6/uL (4.0-5.2); Red Cell Distribution Width 13.4 % (11.6-14.8)
[2021-01-16 05:36] LABS: BUN Creatinine Ratio 18.9 (6-22); Blood Urea Nitrogen 14 mg/dL (7-17); Calcium 8.4 mg/dL (8.4-10.2); Carbon Dioxide 23 mmol/L (22-32); Chloride 106 mmol/L (98-107); Estimated Glomerular Filt Rate > 60.0 mL/min (>60); Glucose 92 mg/dL (80-110); HEMOLYSIS < 15 (0-50); Magnesium 2.1 mg/dL (1.6-2.3); Potassium 3.5 mmol/L (3.4-5.1); Sodium 134 mmol/L (137-145)
[2021-01-16 07:00] VITALS: BP 139/69; PULSE 86; RESP 16; TEMP 37.2; O2SAT 98
[2021-01-16] MEDS: ATORVASTATIN 20 MG TABLET 10 MG PO (08:33)
[2021-01-16] MEDS: HEPARIN 5,000 UNIT/ML VIAL 3000 UNIT SUBCUT (08:34)
[2021-01-16] MEDS: VALSARTAN 80 MG TABLET 40 MG PO (08:35)
[2021-01-16] MEDS: METFORMIN HCL 500 MG TABLET 250 MG PO (08:36)
--- NOTE | 2021-01-16 08:43 | CM.DPC ---
Addendum entered by Sita Gomez LPN 01/16/21 11:15: Went to room to check in with pt after Rounds. Found that a d/c order had been placed and she had already left the her with plan as outlined by Dr. Skelton in place. RN Bonita Monteiro, caring for pt today, confirmed same. Original Note: DCP: continued: case received, EMR reviewed and will discuss in Team Rounds. Noted that pt had surgery 01/13 for acute appendicitis: Lap Appy : acute perforated appendicitis (with stool and fluid to pelvis). Pt with emesis yesterday afternoon and IVF started again. Dr. Skelton has spoken with pt and her with plan now for them to stay on for 2 weeks locally until they receive final ok from Dr. Skelton to resume their boat trip to [place]. Will be checking in with pt and follow accordingly.
--- NOTE | 2021-01-16 09:08 | P.DS_ITS ---
History of Present Illness History of Present Illness Chief complaint: abdominal pain, suspects kidney stone Narrative: This is a n 85 yo woman who presented to the ER today with suprapubic abdominal pain which she reports began yesterday. She had a CT scan which shows a probable perforated appendicitis with an appendicolith. She denies nausea/vomiting. She reports diarrhea. She reports she has never had abdominal surgery. She had a colonoscopy 8 years ago, which she reports was normal. She had polyps on a colonoscopy about 20 years ago. She had a Cologuard test 2 years ago, which she reports was normal. She has a family history of colon cancer in her mother. She denies any melena, hematochezia, unexplained abdominal pain, unexplained weight loss over the last few months or years. ROS: Thirteen system review is otherwise negative other than as mentioned below and in HPI. Past medical history: Type 2 diabetes Hyperlipidemia Hypertension History of left breast cancer treated with surgery only Past surgical history: Left mastectomy and reconstruction Diskectomy Social history Drinks alcohol Patient is visiting in [facility]. She lives in [facility]. She is appear to take her move to [place] with her . Allergies: Rash from penicillin many years ago Family history: Mother with colon cancer Medications Metformin 250 mg t.i.d. Valsartan 40 mg daily in the afternoon Atorvastatin 10 mg daily in the morning PE: GENERAL: Well groomed and cooperative. Appears stated age. Answers questions promptly and appropriately. Vital signs noted. HENT: Normocephalic, atraumatic. Hearing intact. EYES: Conjunctiva pink, sclera white, no periorbital swelling. CARDIOVASCULAR: Regular rate. No pedal edema. RESPIRATORY: Non-tachypneic, breathing comfortably on room air. GASTROINTESTINAL: Abdomen soft and non-distended; tender to palpation in the suprapubic region GENITALURINARY: No flank tenderness. MUSCULOSKELETAL: Equal tone and mass bilaterally. SKIN: Warm, dry, soft, appropriate color for ethnicity. No other lesions, rashes, or wounds. NEURO: Alert and Oriented X 3. No gross sensory deficits, or cognitive issues. PSYCH: Appropriate affect and mood. Discharge Providers Provider Date of admission: 01/13/21 12:08 Discharge Date: 01/16/21 Consults: 01/13/21 17:58 Consult to Discharge Planning Routine Comment: Discharge provider: Myra Skelton MD Summary Hospital Course Discharge Diagnosis: Acute appendicitis Hospital Course: Patient was admitted with acute appendicitis and operated on that day. She was found have a perforated appendix which was adherent to her uterus. There was some soilage in purulent fluid in the abdomen which was suctioned and irrigated clean, and a drain was left. On postop day 1 she was not able to have a bowel movement or passed any gas in gradually became quite bloated. Her x-ray postop day 2 showed dilated loops of bowel. On postop day 2 she had small-bowel follow-through, which resulted in multiple loose stools, and resolution of her bloating. Her labs, exam, vital signs and imaging are consistent with resolving ileus after acute perforated appendicitis, without any signs of ongoing infection or obstruction. Her ANISH drain was removed on postop day 2. Status at Discharge Cognitive/behavioral status at discharge: oriented Functional status at discharge: independent ambulation Overall status at discharge: patient is progressing back to baseline Time Spent with Patient Time spent: Greater than 30 minutes Exam Vital Signs (past 8 hours): - 01/16/21 03:00 01/16/21 07:00 Temperature 97.7 F 99 F Pulse Rate 65 86 Respiratory Rate 16 16 Blood Pressure 113/65 139/69 Pulse Oximetry 97 98 Oxygen Delivery Method Room Air Oxygen Flow Rate 0 Narrative Exam Narrative: GENERAL: Alert oriented comfortable. Appears younger than stated age. Answers questions promptly and appropriately. Vital signs noted. HENT: Normocephalic, atraumatic. Hearing intact. EYES: Conjunctiva pink, sclera white, no periorbital swelling. CARDIOVASCULAR: Regular rate. No pedal edema. RESPIRATORY: Non-tachypneic, breathing comfortably on room air. GASTROINTESTINAL: Abdomen soft, nontender, slightly distended, ANISH drain with serous output was removed during the exam GENITALURINARY: No flank tenderness. MUSCULOSKELETAL: Equal tone and mass bilaterally. SKIN: Warm, dry, soft, appropriate color for ethnicity. No other lesions, rashes, or wounds. NEURO: Alert and Oriented X 3. No gross sensory deficits, or cognitive issues. PSYCH: Appropriate affect and mood. Objective Imaging Abdominal x-ray: Radiologist's impression: [address] [id number] ReportSigned Patient: Nusrat Faulkner [facility]#: [id number]: [id number]/Sex: 85 / FDate of Service: 01/15/21Loc: [id number] Number: [id number] Procedure: XR gastrografin challenge Ordering Provider: Myra Skelton MD PROCEDURE: XR GASTROGRAFIN CHALLENGE COMPARISON: [facility], CR, XR KUB, 01/15/2021, 9:38. INDICATIONS: ileus/obstruction post appy FINDINGS: Diffuse mildly dilated large and small bowel loops. Catheter is unchanged. There is oral contrast material within the stomach small bowel and colon at the 3 hour 45 minutes derrick. No definite contrast material seen in the rectal vault. IMPRESSION: Contrast within the stomach, small bowel and colon. No contrast seen in the rectal vault Dictated by: Donato Isabel M.D. on 01/15/2021 at 16:35 Labs Result Diagrams: 01/16/21 05:05 01/16/21 05:05 Labs: Laboratory Results - last 24 hr 01/16/21 01/16/21 05:05 05:05 WBC 6.0 RBC 3.19 L Hgb 10.5 L Hct 31.4 L MCV 98.6 MCH 32.9 MCHC 33.3 RDW 13.4 Plt Count 204 Neut % (Auto) 59.2 Lymph % (Auto) 24.7 L Bryan % (Auto) 13.5 Eos % (Auto) 2.0 Baso % (Auto) 0.6 Neut # (Auto) 3600 Lymph # (Auto) 1500 Bryan # (Auto) 800 Eos # (Auto) 100 Baso # (Auto) 0 Sodium 134 L Potassium 3.5 Chloride 106 Carbon Dioxide 23 BUN 14 Creatinine 0.74 Estimated GFR > 60.0 BUN/Creatinine Ratio 18.9 Glucose 92 Calcium 8.4 Magnesium 2.1 [facility] Surgical History History of mastectomy (~09/30/10) Social History household members: spouse Smoking Status: Never smoker alcohol intake: current Discharge Assessment & Plan Assessment and Plan Assessment: Acute appendicitis with postop ileus Plan of Treatment: Discharge home with follow-up next week. Patient is instructed to avoid heavy lifting or straining, and to keep well hydrated. Discharge Plan Discharge Plan Patient Disposition: Home Provider Discharge Comment: Important: You should avoid drinking any alcohol for at least 2 more days due to contraindication with 1 of the antibiotics your on in the hospital. Even a small amount of alcohol in combination with Metronidazole can cause severe nausea and vomiting. Usually 3 days after the antibiotic has been discontinued you can drink alcohol without this reaction. In some people it takes longer than 3 days to clear the antibiotic. You last received this antibiotic on January 15. So January 18 will be 3 days from taking the antibiotic. You may use ibuprofen or Aleve as well as Tylenol/ Acetaminophen for pain after surgery. Make sure you do not take more than 3000 mg of Acetaminophen per day from any source. There may be Acetaminophen in your prescription pain medication, cold medications or headache remedies. Using an NSAID such as ibuprofen or Aleve will help with inflammation. Do not take more than recommended. If you are not able have a bowel movement 24 hours after discharge from the hospital, or you feel constipated please take an additional laxative such as MiraLax or Senna. Avoid any straining on the toilet. Avoid heavy lifting, pulling, or pushing more than 10 lbs or doing other activities that strain the abdomen or increase the abdominal pressure such as sit-ups, core work outs, and attempt to prevent frequent coughing for 4 weeks after surgery. This is to help prevent any of your laparoscopic port sites from developing a hernia. If you have fevers, increasing pain, intractable nausea/vomiting, or intractable pain please call the doctor's office or if symptoms are severe come into the ER. If you call after hours please choose the option to contact the surgeon certified meeting professional rather than leaving a message. Please come to the [facility] office for your follow-up appointment on WednesdayJanuary 22 at 10:00 a.m.. Discharge orders & Medications Prescriptions: Continued valsartan 40 mg tablet 40 mg PO DAILY RF: 0 atorvastatin 10 mg PO DAILY RF: 0 metformin 250 mg PO TID RF: 0 Follow up/Referrals: Myra Skelton MD [Physician] - (December @10am) Diet/Activity/Treatments Diet: Diet as Tolerated Skin/Wound/Dressing Care Report to your healthcare provider any signs of infection, such as:: chills, fever, night sweats, increased pain, unusual drainage and unusual redness Visit Report/Discharge Packet Instructions: DI for an Appendectomy, [facility]: Wound Care Stand Alone Forms: Surgery Discharge Quality VTE Deep Vein Thrombosis/Pulmonary Embolism Present on Admission: No
== END 2021-01-16 09:45 | disposition home or self-care (01) | DRG 342 ==
LOC: ED 10:01 → AC 12:12 → ICU 14:28 → AC 01-15 11:35 → ICU 01-15 11:35
PROVIDERS: Admitting Provider Surgery; Emergency Provider Emergency Medicine; Referring Provider Emergency Medicine; Visit Provider Surgery
PROC: 0DTJ4ZZ Resection of Appendix, Percutaneous Endoscopic Approach (ICD-10-PCS; CPT 44970; principal; 2021-01-13 16:00)
DX: K35.20 Acute appendicitis with generalized peritonitis, without abscess (principal); K56.7 Ileus, unspecified; E78.5 Hyperlipidemia, unspecified; E11.9 Type 2 diabetes mellitus without complications; I10 Essential (primary) hypertension; Z85.3 Personal history of malignant neoplasm of breast; Z85.038 Personal history of other malignant neoplasm of large intestine; Z20.822 Contact with and (suspected) exposure to COVID-19; Z79.84 Long term (current) use of oral hypoglycemic drugs
CPT/HCPCS: 36415; 36592; 44970; 74018; 74177; 80048; 80053; 81003; 82565; 82962; 83735; 85025; 87635; 87797; 99222; 99284; C9803; J0360; J1644; J1956; J2405; J2704; J3010; J3475; Q9967